=== PATIENT | female | born 1995 | race Caucasian/White ===

== ENCOUNTER 2019-08-23 23:23 | Emergency (ER) | payer MEDICAID, OTHER ==
[~2019-08-23] VITALS: Ht 149.9 cm; Wt 56.7 kg
[~2019-08-23 23:23] MED LIST: ALBU0.0965
[2019-08-23 23:25] VITALS: BP 141/79
[2019-08-23] MEDS ORDERED: IBUPROFEN 600 MG TAB PO ONE (23:35)
--- NOTE | 2019-08-23 23:50 | NUR ---
X-RAY AT BEDSIDE
--- NOTE | 2019-08-23 23:51 | NUR ---
LAB AT BEDSIDE
--- NOTE | 2019-08-24 00:03 | NUR ---
PT C/O CHEST PAIN THAT RADIATES INTO BOTH SHOULDERS X 5 DAYS. PT STATES SHE DEVELOPED A PRODUCIVE COUGH TODAY WITH WHITE PHLEGM. LUNG SOUNDS CLEAR BILATERALLY. O2 SAT 99% ON RA. DENIES N/V/D, AFEBRILE. PT'S AUNT TESTED POSITIVE FOR COVID, PT WAS SEEN TODAY BY AND WAS TESTED FOR COVID, RESULTS PENDING. BED IN LOWEST POSITION AND SIDE RAIL UP X 1 NKA MED HX - ASTHMA
[2019-08-24 00:40] VITALS: BP 111/76
== END 2019-08-24 00:41 | disposition home or self-care (01) ==
LOC: MED 23:23
DX: R07.9 Chest pain, unspecified (principal); J45.909 Unspecified asthma, uncomplicated; R05 Cough; M79.10 Myalgia, unspecified site; Z20.828 Contact with and (suspected) exposure to other viral communicable diseases
CPT/HCPCS: 36415; 71045; 84484; 93005; 99285; Q0092